=== PATIENT | male | born 1985 | race Caucasian/White ===

== ENCOUNTER 2019-12-14 13:42 | Outpatient (CLI) | payer OTHER, SELFPAY ==
[2019-12-21 15:56] LABS: H pylori, Urea Breath NOT DETECTED (NOT DETECTED)
== END 2019-12-14 13:43 | disposition home or self-care (01) ==
LOC: CHSLAB 13:45
PROVIDERS: PCP Family Medicine; Visit Provider Family Medicine
DX: R10.9 Unspecified abdominal pain (principal)
CPT/HCPCS: 83013

== ENCOUNTER 2020-03-22 09:32 | Outpatient (CLI) | payer OTHER, SELFPAY ==
[2020-03-23 02:13] LABS: SARS-CoV-2 RNA PCR Negative
== END 2020-03-22 09:33 | disposition home or self-care (01) ==
LOC: CHSLAB 09:35
PROVIDERS: PCP Family Medicine; Visit Provider Family Medicine
DX: Z20.828 Contact with and (suspected) exposure to other viral communicable diseases (principal)
CPT/HCPCS: 87635; C9803; U0003

== ENCOUNTER 2021-06-19 02:45 | Emergency (ER) | payer OTHER, SELFPAY ==
[2021-06-19 02:45] VITALS: BP 128/87; PULSE 90; RESP 18; TEMP 36.7; O2SAT 99
--- NOTE | 2021-06-19 02:56 | ED.NAVMDI ---
HPI - Nausea/Vomiting/Diarrhea General Chief complaint: Nausea/Vomiting/Diarrhea Stated complaint: Passed Out and hit head Time Seen by Provider: 06/19/21 02:56 Source: patient Limitations: no limitations History of Present Illness HPI Narrative: 36-year-old previously well man comes in today complaining of head injury and syncopal episode occurred just prior to arrival. Patient states this evening he began having nausea, vomiting and diarrhea. During an episode he passed out and hit his head. He states he recalls falling and hitting his head, and has had no cough, difficulty breathing, blood in his stools, blood in his vomitus, chest pain, or cold symptoms. He has had no sick exposures. He has not had the COVID vaccine. MD elicited complaint: nausea, vomiting and diarrhea Onset (ago): hour(s) (3) Description of vomiting: watery Description of diarrhea: watery Associated nausea: Yes Associated abdominal pain: No Location of pain: none Exacerbating factors: none Relieving factors: none Associated symptoms: denies other symptoms Related Data Allergies Allergy/AdvReac Type Severity Reaction Status Date / Time No Known Allergies Allergy Verified 06/19/21 02:55 Review of Systems Review of Systems: All systems reviewed & are unremarkable except as noted in HPI and below Constitutional: Constitutional: Denies chills, Denies fever(s) and Denies weakness Eyes: Eyes: Denies change in vision and Denies photophobia ENT: Denies nasal congestion and Denies sore throat Cardiovascular: Cardiovascular: Denies chest pain and Denies radiating jaw, neck or arm pain Respiratory: Respiratory: Denies cough and Denies dyspnea Gastrointestinal: Gastrointestinal: Denies abdominal pain, Reports diarrhea, Reports nausea and Reports vomiting Genitourinary: Genitourinary: Denies hematuria and Denies dysuria Musculoskeletal: Musculoskeletal: Denies arthralgias and Denies joint swelling Integumentary/Breasts: Skin/Breast: Denies pruritus, Denies erythema and Denies rash Neurologic: Denies vertigo, Reports dizziness, Reports syncope and Denies focal weakness Hematologic/Lymphatic: Hematologic/Lymphatic: Denies easy bleeding and Denies easy bruising Allergic/Immunologic: Allergic/Immunologic: Denies lip swelling and Denies throat swelling PMFSH Past Medical History Medical History No active medical problems Surgical History Surgical History History of vasectomy Social History Social History (Updated 06/19/21 @ 03:09 by Isaac Gross MD) Smoking status: Never smoker Alcohol intake: never Substance use: never Living arrangements: with family Exam Const: General: healthy appearing, no acute distress and alert Orientation/consciousness: patient oriented x3 Limitations: no limitations HENMT: Head: laceration (occiput) Ears: external ears normal, TM's normal bilaterally and EAC's normal Mouth: Yes moist mucous membranes Throat: posterior oropharynx normal Eyes: Cornea: corneas normal Pupils: Equal, round and reactive pupils present EOM: EOMs intact bilaterally Resp: Effort & Inspection: normal respiratory effort and not labored Auscultation: clear to auscultation bilaterally, no rales, no rhonchi and no wheezes Cardio: Rate: regular rate Rhythm: regular rhythm Heart sounds: no murmurs Skin: General skin exam: normal color, no jaundice and no pallor Rashes: no rashes Neuro: General: patient oriented x3, moves all extremities, no focal motor deficits and CN's II-XI intact bilaterally Speech: normal speech Extrem: General: normal to inspection and no clubbing, cyanosis or edema Psych: Appearance: grossly normal and well kempt Mental Status: mental status grossly normal Affect: normal affect Attitude: cooperative Thought content: Yes Normal thought content present Course Vital Signs Vital sig
[2021-06-19 03:24] LABS: Basophils Absolute Auto 0.07 K/mm3 (0.00-0.10); Basophils Percent Auto 0.5 % (0.0-1.0); Eosinophils Absolute Auto 0.12 K/mm3 (0.02-0.50); Eosinophils Percent Auto 0.8 % (1.0-6.0); Hematocrit 51.9 % (40.0-54.0); Hemoglobin 16.7 g/dL (14.0-18.0); Immature Granulocyte Absolute 0.07 K/mm3 (0.00-0.00); Immature Granulocyte Percent A 0.5 % (0.0-0.0); Lymphocytes Absolute Auto 2.29 K/mm3 (1.10-4.50); Lymphocytes Percent Auto 15.2 % (18.0-42.0); Mean Corpuscular HGB Conc 32.2 g/dL (32.0-36.0); Mean Corpuscular Hemoglobin 28.3 pg (27.0-31.0); Mean Platelet Volume 9.6 fl (8.7-11.0); Monocytes Percent Auto 6.7 % (2.0-11.0); Neutrophils Absolute Auto 11.5 K/mm3 (1.7-7.2); Neutrophils Percent Auto 76.3 % (50.0-70.0); Platelet Count Result 305 K/mm3 (150-420); Red Cell Distribution Width 12.5 % (11.6-14.4)
[2021-06-19] MEDS: SODIUM CHLORIDE 0.9% IV 1,000 ML 999 ML IV CONT ×2 (03:28→03:56)
[2021-06-19] MEDS: ONDANSETRON INJ 4 MG/2 ML VIAL IV PUSH (03:28)
[2021-06-19 03:41] LABS: Alanine Aminotransferase 35 U/L (16-63); Albumin Level 4.5 g/dL (3.4-5.0); Alkaline Phosphatase 109 U/L (46-116); Anion Gap 11 mmol/L (8-16); Aspartate Amino Transferase 22 U/L (15-37); Bilirubin,Total 0.6 mg/dL (0.00-1.00); Blood Urea Nitrogen 14 mg/dL (7-18); Carbon Dioxide 27 mmol/L (21-32); Chloride 102 mmol/L (98-108); Estimated CRCL calculation 90 ml/min; Estimated Glomerular Filt Rate 60; Glucose 135 mg/dL (70-99); Osmolality Calculated 292 mOsm/kg (285-295); Potassium 3.8 mmol/L (3.5-5.1); Sodium 140 mmol/L (136-145); Total Protein 8.2 g/dL (6.4-8.2)
[2021-06-19] MEDS: IBUPROFEN 600 MG TABLET PO (03:54)
[2021-06-19 04:03] LABS: SARS-CoV-2 RNA PCR Negative (Negative)
[2021-06-19 04:50] VITALS: BP 114/76; PULSE 85; RESP 16; TEMP 36.8; O2SAT 100
== END 2021-06-19 04:57 | disposition home or self-care (01) ==
PROVIDERS: Emergency Provider Emergency Medicine; PCP Family Medicine
DX: R55 Syncope and collapse (principal); Z20.822 Contact with and (suspected) exposure to COVID-19
CPT/HCPCS: 36415; 80053; 85025; 96361; 96374; 99283; 99284; A9270; C9803; J2405; J7030; U0003; U0005

== ENCOUNTER 2021-08-25 15:42 | Emergency (ER) | payer OTHER, SELFPAY ==
--- NOTE | ~2021-08-25 | XR_ITS ---
EXAMINATION: XR shoulder RT min 2V INDICATION: Right shoulder pain TECHNIQUE: Four views of the right shoulder are submitted. COMPARISON: None FINDINGS: Normal alignment. No fracture. Glenohumeral and acromioclavicular joint spaces are normal. Soft tissues are unremarkable. IMPRESSION: 1. No acute osseous abnormality. Reviewed, dictated and finalized at location F. ENTION SERVICES MANAGER
--- NOTE | ~2021-08-25 | XR_ITS ---
EXAMINATION: XR chest 1V portable INDICATION: Pain after fall TECHNIQUE: Portable AP chest at 1616 hours COMPARISON: None available FINDINGS: The lungs are free of acute opacities. There is no pleural effusion or pneumothorax. The ca rdiomediastinal silhouette is normal. IMPRESSION: 1. No acute cardiopulmonary abnormality. Reviewed, dictated and finalized at location F. ER DIVER NET
[2021-08-25 15:45] VITALS: BP 128/77; PULSE 78; RESP 20; TEMP 36.4; O2SAT 98
--- NOTE | 2021-08-25 16:40 | ED.UPPEXIN ---
HPI - Extremity Injury (Upper) General Chief Complaint: Extremity Injury, Upper Stated Complaint: right shoulder/collarbone pain-fell Time Seen by Provider: 08/25/21 15:44 Source: patient and RN notes reviewed Mode of arrival: ambulatory Limitations: no limitations History of Present Illness Other injuries: none Place: work Severity: mild Severity scale (1-10): 4 Relieving factors: none Exacerbating factors: none Context: fall Associated symptoms: denies other symptoms Related Data Allergies Allergy/AdvReac Type Severity Reaction Status Date / Time No Known Allergies Allergy Verified 06/19/21 02:55 Review of Systems Review of Systems: All systems reviewed & are unremarkable except as noted in HPI and below PMFSH Past Medical History Medical History No active medical problems Shoulder contusion Surgical History Surgical History History of vasectomy Social History Social History Smoking status: Never smoker Alcohol intake: never Substance use: never Exam Const: General: no acute distress and alert Nutritional Appearance: well nourished Orientation/consciousness: patient oriented x3 Limitations: no limitations HENMT: Head: normal to inspection Ears: external ears normal, TM's normal bilaterally and EAC's normal General nose exam: Normal external nose present and Normal nares present Face and sinus: normal facial exam and sinuses nontender Mouth: Yes moist mucous membranes Throat: posterior oropharynx normal Eyes: Conjunctivae: conjunctivae normal Pupils: Equal, round and reactive pupils present EOM: EOMs intact bilaterally Neck: Neck: normal visual inspection and no lymphadenopathy Chest: Chest palpation & inspection: normal inspection of the chest Resp: Effort & Inspection: normal respiratory effort Auscultation: clear to auscultation bilaterally Cardio: Rate: regular rate Rhythm: regular rhythm GI: GI Palp: Yes Soft to palpation and No Tenderness to palpation present (GI) Auscultation: normal bowel sounds : General: Yes bladder normal to palpation and Yes no CVA tenderness Male General Exam: Yes normal external exam Testes: Testes normal Back/Spine/Pelvis: Back: no CVA tenderness Skin: General skin exam: normal color and jaundice Rashes: no rashes Neuro: General: patient oriented x3, moves all extremities, no meningeal signs, no focal motor deficits and CN's II-XI intact bilaterally Extrem: General: normal to inspection and no pedal edema Other: Mild upper anterior right shoulder tenderness with full ROM, painful and no acute redness, swelling or deformity. Psych: Appearance: grossly normal and well kempt Mental Status: mental status grossly normal Affect: normal affect Attitude: cooperative Thought content: Yes Normal thought content present Course Course Emergency Course: Pt was stable in the ED. less shoulder pain Vital Signs Vital signs: Vital Signs Temperature 36.4 C L 08/25/21 15:45 Pulse Rate 78 08/25/21 15:45 Respiratory Rate 20 08/25/21 15:45 Blood Pressure 128/77 08/25/21 15:45 Pulse Oximetry 98 08/25/21 15:45 Temperature 36.4 C L 08/25/21 16:51 Pulse Rate 78 08/25/21 16:51 Respiratory Rate 20 08/25/21 16:51 Blood Pressure 127/77 08/25/21 16:51 Pulse Oximetry 98 08/25/21 16:51 MDM - Extremity Injury (Upper) Differential Diagnosis Differential diagnosis: Likely dislocation of shoulder, fracture of humerus and fracture of clavicle Medical Records Attestation: I reviewed the patient's medical records. Imaging Data Radiologist's impression: see the report. Critical Care Time Critical Care Time Critical Care Time: No Total Critical Care Time: 0 Discharge Plan Discharge Clinical Impression: Contusion of right shoulder Patient Disposition: Home,
[2021-08-25 16:51] VITALS: BP 127/77; PULSE 78; RESP 20; TEMP 36.4; O2SAT 98
== END 2021-08-25 17:04 | disposition home or self-care (01) ==
PROVIDERS: Emergency Provider Emergency Medicine; PCP Family Medicine
DX: S40.011A Contusion of right shoulder, initial encounter (principal)
CPT/HCPCS: 71045; 73030; 99284; A4565

== ENCOUNTER 2023-01-02 16:57 | Outpatient (RCR) | payer OTHER, SELFPAY ==
--- NOTE | 2023-01-02 17:57 | PTOPEVAL1 ---
Assessment and note entered by JT File, PT Evaluation Information Assessment Status Evaluation Diagnosis L hip pain Onset 12/24/22 Subjective Information patient reports he injured the hip back in august/ september of this year during a fall while playing hockey. he reports he landed on the L buttock/ outside hip. he reports it hurt pretty bad initially and he was unable to put weight on the leg for a good 10 minutes. he reports he did go back to playing after a break. he reports he has had a few more falls since this injury and has re- injured the hip. he reports he has had no xray of the hip. he reports he has had no injections, and is taking no prescribed medications for this injury. he reports he has increased pain in the L hip with running, after playing hockey, and any impact. he reports he has been off of hockey for a week, and will not return for another week. Reported Pain Level Pain Score 3: Self Report Assessment PT Clinical Summary mr. bowles is a 37 yo man who presents to skilled PT services for evaluation and treatment of L hip pain. he displays weakness of the L hip in flexion and abduction, mm tightness surrounding the hip, and pain with palpation of the L hip flexors indicating a tendonitis of the hip flexors . he would benefit from continued skilled PT to improve his objective/functional deficits and progress towards a return to his prior level functional activity performance/quality of life. Plan of Care Interventions Electrical Stimulation,Hot Pack/Cold Pack,Manual Therapy,Neuro Re-education,Patient/Caregiver Educati,Therapeutic Activities,Therapeutic Exercise,Ultrasound PT Services Indicated Yes Treatment Frequency and 3x weekly for 9 visits Duration These treatments will address the objective and functional deficits as defined above. The patient will be advanced safely and appropriately in order for the patient to progress towards his/her prior level of function. Additional exercises will be introduced and as well as a comprehensive home exercise program upon discharge, if needed, ?to ensure carryover of functional gains achieved in the clinic. This treatment plan has been reviewed and agreement upon by the patient.
--- NOTE | 2023-01-02 17:57 | OPREHPOC ---
Outpatient Therapy Plan of Care This is a Multidisciplinary Plan of Care that may contain components documented by all disciplines (PT, OT, and ST.) PT Problem 1 PT Problem #1 Knowledge Deficit PT Goal 1 Goal 1. independent and compliant with HEP to improve tolerance for continued skilled PT and exercises Target Visit 4 PT Problem 2 PT Problem #2 Pain PT Goal 1 Goal 1. patient to report elimination of all pain in the L hip to return to prior level activities without limitations. Target Visit 9 PT Problem 3 PT Problem #3 Impaired Strength PT Goal 1 Goal 1. 5/5 L hip flex strength in medial, nuetral, and lateral roation 2. 5/5 L hip abd strength Target Visit 9 PT Problem 4 PT Problem #4 Impaired Functional Mobil PT Goal 1 Goal 1. LEFS to display 0% functional deficits 2. patient to return to running and skating without pain Target Visit 9
--- NOTE | 2023-01-22 17:31 | PTOPREEVAL ---
Assessment and note entered by JT File, PT Evaluation Information Assessment Status Re-evaluation Diagnosis L hip pain Onset 12/24/22 Subjective Information patient reports he was doing better for a while, but since returning to hockey he has had increased pain. he reports he has not played hockey in over a week, but continues to have pain in the L hip. he reports pain is most eggreegious with weight bearing during standing and walking. he reports most pain with weight bearing/SLS portion of the gait cycle and not when the hip is extended. Reported Pain Level Pain Score 5: Self Report Assessment PT Clinical Summary presents to skilled PT services for his 9th skilled therapy visit. he presents today with continued pain, weakness, antalgic gait, and lack of return to prior level functional activities. he has met only his goal for HEP performance. he would benefit from holding skilled PT at this time to return to MD. he would benefit from MRI imaging to rule out any soft tissue injury to the L hip. he would also benefit from communication with MD about a trial of anti-inflamatory meds/ steroid dose pack to fight his inflamation. Plan of Care Interventions Electrical Stimulation,Hot Pack/Cold Pack,Manual Therapy,Neuro Re-education,Patient/Caregiver Educati,Therapeutic Activities,Therapeutic Exercise,Ultrasound PT Services Indicated Yes Treatment Frequency and hold therapy to follow up with MD Duration get MRI These treatments will address the objective and functional deficits as defined above. The patient will be advanced safely and appropriately in order for the patient to progress towards his/her prior level of function. Additional exercises will be introduced and as well as a comprehensive home exercise program upon discharge, if needed, ?to ensure carryover of functional gains achieved in the clinic. This treatment plan has been reviewed and agreement upon by the patient.
--- NOTE | 2023-01-22 17:31 | OPREHPOC ---
Outpatient Therapy Plan of Care This is a Multidisciplinary Plan of Care that may contain components documented by all disciplines (PT, OT, and ST.) PT Problem 1 PT Problem #1 Knowledge Deficit PT Goal 1 Goal 1. independent and compliant with HEP to improve tolerance for continued skilled PT and exercises Target Visit 4 Progress Met PT Problem 2 PT Problem #2 Pain PT Goal 1 Goal 1. patient to report elimination of all pain in the L hip to return to prior level activities without limitations. Target Visit 9 Progress Not Met PT Problem 3 PT Problem #3 Impaired Strength PT Goal 1 Goal 1. 5/5 L hip flex strength in medial, nuetral, and lateral roation 2. 5/5 L hip abd strength Target Visit 9 Progress Not Met PT Problem 4 PT Problem #4 Impaired Functional Mobil PT Goal 1 Goal 1. LEFS to display 0% functional deficits 2. patient to return to running and skating without pain Target Visit 9 Progress Not Met
--- NOTE | 2023-04-29 16:42 | PCPTNOTE ---
patient discharged with follow up to MD and surgery performed
== END 2023-01-22 23:59 | disposition home or self-care (01) ==
LOC: CHSPT 16:57
PROVIDERS: PCP Family Medicine; Visit Provider Family Medicine
DX: M25.559 Pain in unspecified hip (principal)
CPT/HCPCS: 97014; 97110; 97140; 97161; G0283

== ENCOUNTER 2023-01-22 08:45 | Outpatient (CLI) | payer OTHER, SELFPAY ==
--- NOTE | ~2023-01-22 | US_ITS ---
Testicular ultrasound with doppler. Indication: Palpable area of concern right testis. Technique: Real-time sonography the scrotum was performed. Color flow Doppler and Doppler spectral an alysis were performed. Findings: The testes are homogeneous in echotexture bilaterally. There is no evidence of an intrates ticular mass. The right testis measures 2.9 x 2.4 x 4.3 cm and the left 3.3 x 2.6 x 4.5 cm. There is color-flow seen to both testes. Arterial and venous spectral waveforms are seen in both testes. There is no sonographic evidence of torsion. The head of the epididymis is visualized bilaterally and is within normal limits. Minimal right hydrocele present. Impression: Minimal right hydrocele, otherwise unremarkable exam. Reviewed, dictated and finalized at location . Impression: Minimal right hydrocele, otherwise unremarkable exam.
== END 2023-01-22 08:46 | disposition home or self-care (01) ==
LOC: CHSIMG 08:46
PROVIDERS: PCP Family Medicine; Visit Provider Family Medicine
DX: N50.89 Other specified disorders of the male genital organs (principal); N43.3 Hydrocele, unspecified
CPT/HCPCS: 76870

== ENCOUNTER → 2023-02-10 06:58 | Outpatient (CLI) | payer OTHER, SELFPAY ==
--- NOTE | ~2023-02-10 | MR_ITS ---
EXAMINATION: MR hip LT wo con DATE: 02/10/2023 07:45 INDICATION: Left hip pain TECHNIQUE: Magnetic resonance imaging (MRI) of the affected hip was performed without intravenous co ntrast. Sequences included full-field axial PD-weighted FS FSE and T1-weighted FSE, coronal of the pe lvis with PD-weighted FS FSE, small field of view of the affected hip with axial PD-weighted FS FSE, sagittal PD-weighted FS FSE and coronal PD weighted FS FSE. Additional radial T1-weighted FGR orient ed orthogonal to the acetabular rim were obtained for evaluation of the labrum. COMPARISON: None FINDINGS: Bones/labrum/cartilage: Alignment is normal. No fracture or avascular necrosis. 7.0 x 4.0 x 4.0 cm T2 hyperintense lesion at the cervical and intertrochanteric portion of the proximal left femur with a relatively homogeneous 3.6 x 3.1 x 1.3 cm component along its proximal margin and the remainder of ileus hypertensive is fat with more heterogeneous signal intensity on T1 and T2-weighted imaging. There is a sharply defined l ow signal intensity margin to the lesion which appears to be grade one trabecular pattern along its c audal margin suggesting a nonaggressive lesion with peripheral sclerotic margin. The lesion occupies essentially the entire medullary space at the femoral neck without evident endosteal scalloping, but nonetheless an increased risk of pathologic fracture. No other bone lesions identified. Small region of degeneration at the posterosuperior left acetabular labrum. Mild osteoarthritis at the left hip wi th mild nonuniform partial-thickness cartilage loss primarily along the margins of the joint space wi th minimal subarticular edema-like signal change at the superolateral acetabulum and along the dawood superior to posterior superior margin of the femoral head. Fluid: Physiologic amount fluid at the right hip joint. Minimal left hip joint effusion. Soft tissues: Normal and symmetric muscle bulk and signal in the pelvis and visualized proximal thighs. The iliopso as, gluteal and proximal hamstring tendons are normal. Limited evaluation of visceral organs of the p josiane is unremarkable. Small right hydrocele. No pathologically enlarged pelvic/inguinal lymphadenopa thy. IMPRESSION: 1. 7.0 x 4.0 x 4.0 cm lesion filling the medullary space at the left femoral neck and intratrochanter ic region which given its size would be at increased risk of pathologic fracture. The lesion has a re latively nonaggressive appearance but would recommend correlation with either plain radiographs or CT to confirm the suspected peripheral sclerotic rim. 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 Differential would include fibrous dysplasia, aneurysmal bone cyst an d less likely intraosseous lipoma. 2. Is mild left hip osteoarthritis with small tear at the posterosuperior left acetabular labrum and very small left hip joint effusion. Reviewed, dictated and finalized at location A. IMPRESSION: 1. 7.0 x 4.0 x 4.0 cm lesion filling the medullary space at the left femoral ne ck and intratrochanteric region which given its size would be at increased risk of pathologic fracture. The lesion has a relatively nonaggressive appearance b ut would recommend correlation with either plain radiographs or CT to confirm t he suspected peripheral sclerotic rim. 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 Differential would include fibrous dys plasia, aneurysmal bone cyst and less likely intraosseous lipoma. 2. Is mild left hip osteoarthritis with small tear at the posterosuperior left acetabular labrum and very small left hip joint effusion.
== END ==
PROVIDERS: PCP Family Medicine; Visit Provider Family Medicine
DX: M16.12 Unilateral primary osteoarthritis, left hip (principal); S73.192A Other sprain of left hip, initial encounter; M25.452 Effusion, left hip; X58.XXXA Exposure to other specified factors, initial encounter
CPT/HCPCS: 73721

== ENCOUNTER 2023-04-29 13:50 | Outpatient (RCR) | payer OTHER, SELFPAY ==
--- NOTE | 2023-04-29 14:33 | OPREHPOC ---
Outpatient Therapy Plan of Care This is a Multidisciplinary Plan of Care that may contain components documented by all disciplines (PT, OT, and ST.) PT Problem 1 PT Problem #1 Knowledge Deficit PT Goal 1 Goal 1. independent and compliant with HEP Target Visit 5 PT Problem 2 PT Problem #2 Impaired Range of Motion PT Goal 1 Goal 1. L hip active flexion to 105 degrees or better 2. L hip active IR and ER to 45 degrees or better each Target Visit 9 PT Problem 3 PT Problem #3 Impaired Strength PT Goal 1 Goal 1. 5/5 bilateral hip strength overall Target Visit 9 PT Problem 4 PT Problem #4 Impaired Functional Mobil PT Goal 1 Goal 1. patient to DC use of AD for ambulation 2. patient to ambulate 6 minutes walk test without rest for more than 1200ft 3. patient to ambulate with reciprocal mechanics up and down steps 4. LEFS to display less than 20% functional deficits Target Visit 9
--- NOTE | 2023-04-29 14:33 | PTOPEVAL1 ---
Assessment and note entered by JT File, PT Evaluation Information Assessment Status Evaluation Diagnosis s/p L hip ORIF Onset 04/09/23 Subjective Information patient was in therapy back in December of this year for hip pain. he was discharged without relief of the hip pain, and reffered to MD/surgeon for evaluation. it was discovered that he had a cyst growing on the bone of the L hip. he had surgery to remove the cyst and surgically stabilize the bone. he is now coming to therapy for rehab following this surgery. he has no ROM restrictions per the post op protocol/order, and was instructed to progress from 50% weight bearing to 100% weight bearing over the next 4 weeks beginning 04/24/23. he reports walking is difficult and has to walk short distances with frequent rests. he also reports he has trouble with squatting. he reports the leg feels weak with his activity. Reported Pain Level Pain Score 0: Self Report Assessment PT Clinical Summary mr. bowles is a 38 yo man who presents to skilled PT services for evaluation and treatment of L hip pain, weakness, decreased rom, and abnormal gait following a surgical fixation of the hip. he would benefit from continued skilled PT to improve his objective/funtional deficits and progress towards return to prior level functional activities without pain to improve his quality of life. Plan of Care Interventions Electrical Stimulation,Gait Training,Hot Pack/Cold Pack,Manual Therapy,Neuro Re-education,Patient/ Caregiver Educati,Therapeutic Activities, Therapeutic Exercise PT Services Indicated Yes Treatment Frequency and 3x weekly for 9 visits Duration These treatments will address the objective and functional deficits as defined above. The patient will be advanced safely and appropriately in order for the patient to progress towards his/her prior level of function. Additional exercises will be introduced and as well as a comprehensive home exercise program upon discharge, if needed, ?to ensure carryover of functional gains achieved in the clinic. This treatment plan has been reviewed and agreement upon by the patient.
--- NOTE | 2023-05-15 17:29 | OPREHPOC ---
Outpatient Therapy Plan of Care This is a Multidisciplinary Plan of Care that may contain components documented by all disciplines (PT, OT, and ST.) PT Problem 1 PT Problem #1 Knowledge Deficit PT Goal 1 Goal 1. independent and compliant with HEP Target Visit 5 Progress Met PT Problem 2 PT Problem #2 Impaired Range of Motion PT Goal 1 Goal 1. L hip active flexion to 105 degrees or better - met 2. L hip active IR and ER to 45 degrees or better each -adequate progress Target Visit 9 Progress Partially Met PT Problem 3 PT Problem #3 Impaired Strength PT Goal 1 Goal 1. 5/5 bilateral hip strength overall -met except abduction is 4+/5 Target Visit 9 Progress Partially Met PT Problem 4 PT Problem #4 Impaired Functional Mobil PT Goal 1 Goal 1. patient to DC use of AD for ambulation -met 2. patient to ambulate 6 minutes walk test without rest for more than 1200ft -met 3. patient to ambulate with reciprocal mechanics up and down steps -met 4. LEFS to display less than 20% functional deficits -met Target Visit 9
--- NOTE | 2023-05-15 17:32 | PTOPDC ---
Assessment and note entered by Elena Montanez, PT Evaluation Information Assessment Status Discharge Diagnosis s/p L hip ORIF Onset 04/09/23 Subjective Information Maksim reports his left hip is doing better. He has not used his cane for several weeks and he has no limitations with daily activities. He is walking about a mile on his lunch breaks without difficulty. He notes he can not squat as much on the left leg as much as he can on the right and he has not tried running because his doctor has not told him he can. He will see his surgeon on . Reported Pain Level Pain Score 0: Self Report Pain Score 0: Self Report Assessment PT Clinical Summary Maksim Kirby has completed 9 skilled PT visits following a left hip ORIF performed on 04/09/23. He is reporting no difficulty with daily activities and has been walking a mile on his lunch breaks. He has not returned to running as he has not been cleared by his surgeon to do so. He objectively demonstrates improved gait, improved left hip AROM, improved left hip strength, and improved balance. He has mild strength deficits however he is independent in a home exercise program to continue to address these deficits. He will be discharged to an independent home exercise program. Plan of Care PT Services Indicated No
== END 2023-05-15 18:36 | disposition home or self-care (01) ==
LOC: CHSPT 13:50
DX: Z47.89 Encounter for other orthopedic aftercare (principal)
CPT/HCPCS: 97110; 97112; 97161; 97750

== ENCOUNTER 2025-04-29 12:08 | Outpatient (CLI) | payer OTHER, SELFPAY ==
--- NOTE | ~2025-04-29 | US_ITS ---
EXAMINATION: US soft tissue LE RT, 04/29/2025 12:11 CDT HISTORY: M71.379 - Other bursal cyst, unspecified ankle and foot Comparison: None Technique: Torres-scale and color Doppler images were obtained. Findings: Correlating with the palpable area there is a complex subcutaneous focus measuring 2.2 x 1.3 x 0.7 cm without abnormal flow. IMPRESSION: Probable hematoma. Differential includes a complicated ganglion cyst versus abscess. Follow-up recommended to assess resolution. MRI suggested to assess as clinically warranted Reviewed, dictated and finalized at location P. IMPRESSION: Probable hematoma. Differential includes a complicated ganglion cys t versus abscess. Follow-up recommended to assess resolution. MRI suggested to assess as clinically warranted
--- OUTSIDE RECORDS SUMMARY | 2025-04-29 12:10 | XMS_ITS | Clinical Summary ---
Author Organization [facility] Address [address] [place] [address] Care Team Providers Care Hand Pleater Name Role Phone Clifford Maynard Primary Care Provider Unavailabl e Source Comments [facility],non-owned Affiliates and Associated Physician Practices is amultiple site organization consisting of ambulatory clinics and hospital sitesin [place], [place], [place] and [place]. This disclosure is being madepursuant to the Care Everywhere program and may not contain all information available regarding this patient. Last updated 18.[facility] Allergies No known active allergies Medications * Be aware that medications may not be up to date on this document. Alwaysverify current medications with the patient. No known medications Social History Tobacco Use Types Packs/Day Years Used Date Smoking Tobacco: Never Smokeless Tobacco: Never Sex and Gender Information Value Date Recorded Sex Assigned at Not on file Legal Sex Male 8:28 AM CDT Gender Identity Not on file Sexual Orientation Not on file Last Filed Vital Signs Vital Sign Reading Time Taken Comments Blood Pressure 128/78 04/10/2020 9:54 AM CDT Pulse 77 04/10/2020 9:54 AM CDT Temperature 36.9 C (98.4 F) 04/10/2020 9:54 AM CDT Respiratory Rate 16 04/10/2020 9:54 AM CDT Oxygen Saturation 98% 04/10/2020 9:54 AM CDT Inhaled Oxygen Concentration - - Weight 99.8 kg (220 lb) 04/10/2020 9:54 AM CDT Height 200.7 cm (6' 7) 04/10/2020 9:54 AM CDT Body Mass Index 24.78 04/10/2020 9:54 AM CDT Plan of Treatment Health Maintenance Due Date Last Done Comments HIV SCREENING 2001 HEPATITIS C SCREENING 03/18/2004 DTAP/TDAP/TD VACCINES (1 - Tdap) 2005 HEPATITIS B VACCINE (1 of 3 - 19+ 3-dose series) 2005 HPV VACCINE (1 - 3-dose SCDM series) 2013 DEPRESSION SCREENING 06/30/2024 COVID-19 VACCINE (1 - 4-2 5 season) 2025 INFLUENZA VACCINE (#1) 2025 ZOSTER VACCINE (1 of 2) 2036 HIB VACCINE Aged Out No longer eligi ble based on patient's age to complete this topic MENINGOCOCCAL (Group B) VACC INE SHARED DECISION-MAKING Aged Out No longer eligibl e based on patient's age to complete this topic MENINGOCOCCAL GROUPS A/C/Y/W VACCINE Aged Out No longer eligible b ased on patient's age to complete this topic PNEUMOCOCCAL VACCINE Aged Out No long er eligible based on patient's age to complete this topic Insurance Care Teams Hand Pleater Relationship Specialty Start Date End Date Clifford Maynard PCP - General 04/10/20
--- OUTSIDE RECORDS SUMMARY | 2025-04-29 12:10 | XMS_ITS | Clinical Summary ---
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 Bone lesion 03/13/2023 Immunizations Immunization Administration Dates Next Due DTP 04/03/1990, 8,1986,08/11,1986 Hep B, Adolescent or Pediatric 04/04/1997,1996,10/04/1996 HiB 08/30/1988 Influenza, Quadrivalent, Spl it, Preservative Free, Intramuscular 04/07/2020 MMR 03/05/1991,09/06/1987 OPV 04/03/1990, 8,1986,06/14 Td, adsorbed 11/28/2000 Tdap 12/27/2014 Surgical History Surgery Date Site/Laterality Comments VASECTOMY 2016 Family History Medical History Relation Name Comments Cancer Mother Pearl Kirby Relation Name Status Comments Mother Pearl Kirby Social History Tobacco Use Types Packs/Day Years Used Date Smoking Tobacco: Never Passive Smoke Exposure: Never Smokeless Tobacco: Never AUDIT-C Answer Date Recorded Q1: How often do you have a drink containing alcohol? Never 04/09/2023 Q2: How many drinks containi ng alcohol do you have on a typical day when you are drinking? Patient does not drink Q3: How often do you have si x or more drinks on one occasion? Never 04/09/2023 Personal Safety Answer Date Recorded Have you ever been in or are you currently in a harmful physical or emotional relationship or is someone making you feel afraid or unsafe? Denies 04/09/2023 Sex and Gender Information Value Date Recorded Sex Assigned at Not on file Legal Sex Male 7:12 PM [employer] Gender Identity Not on file Sexual Orientation Not on file Obstetrics History Last Filed Vital Signs Vital Sign Reading Time Taken Comments Blood Pressure 122/76 04/10/2023 9:05 AM CDT Pulse 93 04/10/2023 9:05 AM CDT Temperature 37 C (98.6 F) 04/10/2023 9:05 AM CDT Respiratory Rate 16 04/10/2023 9:05 AM CDT Oxygen Saturation 100% 04/10/2023 9:05 AM CDT Inhaled Oxygen Concentration - - Weight 105.2 kg (231 lb 14.8 oz) 04/09/2023 2:10 PM CDT Height 200.7 cm (6' 7.02) 04/09/2023 2:10 PM CD T Body Mass Index 26.12 04/09/2023 2:10 PM CDT Plan of Treatment Health Maintenance Due Date Last Done Comments Depression Screening 1986 Hepatitis C Screening 1986 Varicella Vaccines (1 of 2 - 13+ 2-dose series) 1999 Regular Well Visit/Exam 18-64 2004 HPV Vaccines (1 - 3-dose SCDM series) 2013 DTaP/Tdap/Td Vaccine (7 - Td or Tdap) 12/27/2024 12/27/2014, 11/28/2000, 04/03/1990, Additional history exists Covid-19 Vaccine (2 - 2024- season) 2025 06/21/2021 Influenza Vaccine (#1) 2025 04/07/2020 Hepatitis B Screening Completed 04/04/1997 , 11/01/1996, 10/04/1996 Pneumococcal vaccine <65 Aged Out No longer eligible based on patient's age to complete this topic Medical Devices Implanted Type Area Drain Cleaner Plumber Device Identifier Shelf Expiration Date Model / Serial / Lot Allosource Freeze Dried Chips 1-10mm Graft 15ml Bone Cancellous [id number] - [id number] - [id number] Implanted:Qty: 1 on 04/09/2023 by Krishna Proctor MD at [facility] Bone Left: Femur Allosource 10/13/2027 [id number] / [id number] / [id number] Allosource Freeze Dried Chips 4-10mm Graft 30ml Bone Cancellous [id number] - [id number] - [id number] Implanted:Qty: 1 on 04/09/2023 by Krishna Proctor MD at [facility] Bone Left: Femur Allosource 10/14/2027 [id number] / [id number] / [id number] Allosource Freeze Dried Chips 1-10mm Graft 15ml Bone Cancellous 60677948 - [id number] - [id number] Implanted:Qty: 1 on 04/09/2023 by Krishna Proctor MD at [facility] Bone Left: Femur Allosource 10/13/2027 [id number] / [id number] / [id number] Allosource Freeze Dried Chips 4-10mm Graft 30ml Bone Cancellous 03655051 - [id number] - [id number] Implanted:Qty: 1 on 04/09/2023 by Krishna Proctor MD at [facility] Bone Left: Femur Allosource 10/10/2027 [id number] / [id number] / [id number] Allosource Freeze Dried Chips 4-10mm Graft 30ml Bone Cancellous 85785442 - [id number] - [id number] Implanted:Qty: 1 on 04/09/2023 by Krishna Proctor MD at [facility] Bone Left: Femur Allosource 09/24/2027 [id number] / [id number] / [id number] Musculoskeletal Transplant Allograft Putty Freeze Dried Filler 10cc Bone Void Dbx 650688 - [id number] - [id number] Implanted:Qty: 1 on 04/09/2023 by Krishna Proctor MD at [facility] Other - see comments Left: Femur Musculoskeletal Transplant 06/12/2024 [id number] / [id number] / 0 Musculoskeletal Transplant Allograft Putty Freeze Dried Filler 5cc Bone Void Dbx 127407 - [id number] - [id number] Implanted:Qty: 1 on 04/09/2023 by Krishna Proctor MD at [facility] Other - see comments Left: Femur Musculoskeletal Transplant 01/15/2025 [id number] / [id number] / [id number] Musculoskeletal Transplant Allograft Putty Freeze Dried Filler 5cc Bone Void Dbx 710863 - [id number] - [id number] Implanted:Qty: 1 on 04/09/2023 by Krishna Proctor MD at [facility] Other - see comments Left: Femur Musculoskeletal Transplant 12/16/2024 [id number] / [id number] / Synthes Dhs 84b87s4.8mm 38mm 2 Hole Hip Condyle 130d Standard Barrel 281.021s - S0 - [id number] Implanted:Qty: 1 on 04/09/2023 by Krishna Proctor MD at [facility] Plate Left: Femur Synthes I 12/28/2031 281.021S / 0 / [id number] Synthes Dhs Dcs 12mm 8mm 2.7mm 100mm 22mm Lag Cannulated Hip Condylar 280.301 - [id number] Implanted:Qty: 1 on 04/09/2023 by Krishna Proctor MD at [facility] Left: Femur Synthes I 280.301 / / Synthes 4.5mm 8mm 44mm Self Tap Large Hexagonal Socket Cortical Screw 214.844 - [id number] Implanted:Qty: 1 on 04/09/2023 by Krishna Proctor MD at [facility] Left: Femur Synthes I 214.844 / / Synthes 4.5mm 8mm 40mm Self Tap Large Hexagonal Socket Cortex Screw Bone 214.840 - [id number] Implanted:Qty: 1 on 04/09/2023 by Krishna Proctor MD at [facility] Left: Femur Synthes I 214.840 / / Synthes Dhs 06t14v4.8mm 38mm 2 Hole Hip Condyle 130d Standard Barrel 281.021s - [id number] Implanted:Qty: 1 on 04/09/2023 by Krishna Proctor MD at [facility] Left: Femur Synthes I 281.021S / / Insurance [facility] PLUS Advance Directives For more information, please contact: [phone] * Full Code (Latest Code Status on File) Date Activated Date Inactivated Comments 04/09/2023 1:27 PM 04/10/2023 3:28 PM Care Teams [employer] Truck Driver Relationship Specialty Start Date End Date Clifford Maynard DO [address] [place] [address] PCP - General Family Medicine 02/28/23
== END 2025-04-29 12:09 | disposition home or self-care (01) ==
PROVIDERS: PCP Family Medicine; Visit Provider Family Medicine
DX: M71.371 Other bursal cyst, right ankle and foot (principal)
CPT/HCPCS: 76882